=== PATIENT | female | born 1950 | race Caucasian/White ===

== ENCOUNTER → 2017-10-31 | Outpatient (CLI) | payer MEDICARE, OTHER ==
[~2017-10-31] MED LIST: ADULT LOW DOSE81 MG PO; EPIPEN0.3 MG/0.3 IM; L-LYSINE500 M1 PO; LASIX 20 MG TAB20 MG; MEDROL DOSPAK21 TA1 PO; MOBIC15 MG PO; MULTIVITAMINS PO; NITROSTAT0.3 MG SL; PRAVASTATIN SOD10 MG PO; PREDNISONE 20 M20 MG PO; PRILOSEC 20 MG20 MG PO; PROVERA5 MG PO; SYNTHROID125 MCG PO; TOVIAZ4 MG
--- NOTE | 2017-11-07 11:50 | SLEEP ---
[address] [address] SLEEP STUDY REPORT Name: MONTSERRAT ROMAN Room: [facility]#: [id number] Admission: 10/31/17 Attend Phys: Giovanni Heck Discharge: Date of : 48 Report #: [id number] THIS REPORT FOR: //name// CC: Brenda Durbin This study has been reviewed in its entirety by a board certified sleep specialist DATE OF SERVICE: 10/31/2017 REQUESTING PHYSICIAN: Dr. Brenda Durbin. Polysomnography was performed for complaints of restless sleep and snoring. Complains of some daytime sleepiness. Vaughn sleepiness scale was 18/24, which signifies significant daytime sleepiness. Her weight is 265 pounds, with a BMI of 48.5. The total study time was 492 minutes. Total sleep time 378 minutes. 9.5% of the time was spent in REM sleep. During the study, there was 1 central apnea noted. No mixed or obstructive apneas. 13 hypopneas were noted. This resulted in apnea-hypopnea index of 2.2 total. She slept primarily in the supine and right lateral position with some time prone as well. She has a large number of periodic limb movements of 210. 46 of these were associated with an arousal. That resulted in a PLMS index of 33.3 and PLMS arousal index of 7.3. Some snoring was noted. Size arousals associated with respiratory events and her limb movements, spontaneous arousals were also noted. O2 saturations while asleep remained greater than with the lowest observed O2 saturation of 85% (total time of only 10 minutes with saturations less than 90%). Split study was not done due to lack of qualifying events. IMPRESSION: 1. Study reveals evidence of mild sleep disordered breathing. Apnea-hypopnea index total was only 2.2. However, during REM sleep, it was elevated at 13.3. Does have a large number of periodic limb movements, many associated with an arousal. That certainly contribute to poor sleep quality. 2. Elevated body mass index. RECOMMENDATIONS: 1. Consider treatment of periodic limb movement disorder. This may [place] [address] SLEEP STUDY REPORT Name: JESSIEMONTSERRAT E Room: [facility]#: [id number] Admission: 10/31/17 Attend Phys: Giovanni Heck Discharge: Date of : 48 Report #: [id number] 2. Achievement of ideal body weight and maintaining that. 3. If above measures are not helpful, could consider returning to the sleep lab for titration study given the elevated apnea-hypopnea index (13.3) during REM sleep. <ELECTRONICALLY SIGNED> By: Maria Luz Santiago MD 11/07/17 [id number] MD veronika Pathak
== END ==
LOC: M.SLEEPLAB 19:58
DX: G47.30 Sleep apnea, unspecified (principal); E66.01 Morbid (severe) obesity due to excess calories; R53.83 Other fatigue; H91.90 Unspecified hearing loss, unspecified ear; E03.9 Hypothyroidism, unspecified; E78.2 Mixed hyperlipidemia

== ENCOUNTER 2020-09-17 14:20 | Emergency (ER) | payer MEDICARE, OTHER ==
[~2020-09-17] VITALS: Ht 154.9 cm; Wt 68.0 kg
[~2020-09-17 14:20] MED LIST changes: -SYNTHROID125 MCG PO; +SYNTHROID137 MC1 PO
[2020-09-17] MEDS ORDERED: TUMS DUAL ACTI1 EACH PO (14:37)
[2020-09-17] MEDS ORDERED: FLINTSTONES CO1 EAC1 PO (14:37)
[2020-09-17] MEDS ORDERED: VITAMIN D31250 MC1 PO (14:38)
[2020-09-17] MEDS ORDERED: PREDNISONE 20 M20 MG PO (15:14)
[2020-09-17 15:42] VITALS: BP 120/71
== END 2020-09-17 15:42 | disposition home or self-care (01) ==
LOC: M.ERS 14:20
DX: S40.012A Contusion of left shoulder, initial encounter (principal); T50.995A Adverse effect of other drugs, medicaments and biological substances, initial encounter; E03.9 Hypothyroidism, unspecified; Z88.0 Allergy status to penicillin; Z91.018 Allergy to other foods; X58.XXXA Exposure to other specified factors, initial encounter; Y93.89 Activity, other specified; Y92.89 Other specified places as the place of occurrence of the external cause; Y99.8 Other external cause status

== ENCOUNTER → 2020-12-07 | Outpatient (CLI) | payer MEDICARE, OTHER ==
[~2020-12-07] MED LIST changes: +FLINTSTONES CO1 EAC1 PO; +TUMS DUAL ACTI1 EACH PO; +VITAMIN D31250 MC1 PO
== END ==
LOC: M.ULTRA 15:00
PROVIDERS: ATTEND Orthopaedic Surgery
DX: M79.89 Other specified soft tissue disorders (principal)